=== PATIENT | female | born 1960 | race Native Hawaiian/Other Pacific Islander ===

== ENCOUNTER 2016-11-06 10:18 | Emergency (ER) | payer BC ==
[~2016-11-06] VITALS: Ht 160 cm; Wt 77.1 kg
[2016-11-06] MEDS ORDERED: NATURE THROI OR (10:45)
[2016-11-06] MEDS ORDERED: HYDR10TA PO (10:46)
== END 2016-11-06 11:45 | disposition home or self-care (01) ==
LOC: ED 10:18
DX: M54.12 Radiculopathy, cervical region (principal)
CPT/HCPCS: 99282